=== PATIENT | female | born 1960 | race Caucasian/White ===

== ENCOUNTER 2017-08-06 05:55 | Day surgery (SDC) | payer OTHER ==
[~2017-08-06] VITALS: Ht 163.8 cm; Wt 103.6 kg
[~2017-08-06 05:55] MED LIST: ADVIL200 M2 PO; ATIVAN0.5 M1 PO; BENAZEPRIL-HCT PO; BIOTIN; BONIVA150 MG PO; CALCIUM 1,0001 EAC1 PO; LEXAPRO10 M2 PO; PROTONIX40 M2 PO; SINGULAIR10 M1 PO; VALSARTAN-HCTZ1 EA11 PO; VITAMIN B12; VITAMIN D5000 UNI1 PO; XOPENEX HFA15 G1 INH
[2017-08-06 07:00] LABS: ANION GAP 14 mmol/L (0-20); BLOOD UREA NITROGEN 13 mg/dl (6-24); CALCIUM 9.2 mg/dl (8.5-10.5); CARBON DIOXIDE-VENOUS 26 mmol/L (22-32); CHLORIDE 107 mmol/l (96-110); CREATININE 0.75 mg/dl (0.50-1.10); GLUCOSE 111 mg/dL (70-110); POTASSIUM 3.8 mmol/L (3.7-5.1); SODIUM 143 mmol/L (135-145); eGFR VALUE FOR BLACK >90 mL/Min
== END 2017-08-06 09:08 ==
LOC: ENDOS 05:55 → SHSC 05:55 → ENDOS 08:00
PROVIDERS: Specialist
PROC: 0DBB8ZX Excision of Ileum, Via Natural or Artificial Opening Endoscopic, Diagnostic (ICD-10-PCS; principal; 2017-08-06)
PROC: 0DBE8ZX Excision of Large Intestine, Via Natural or Artificial Opening Endoscopic, Diagnostic (ICD-10-PCS; 2017-08-06)
DX: K57.30 Diverticulosis of large intestine without perforation or abscess without bleeding (principal); I10 Essential (primary) hypertension; E66.01 Morbid (severe) obesity due to excess calories; F41.9 Anxiety disorder, unspecified; F32.9 Major depressive disorder, single episode, unspecified; J45.909 Unspecified asthma, uncomplicated; G47.30 Sleep apnea, unspecified; K21.9 Gastro-esophageal reflux disease without esophagitis; Z79.1 Long term (current) use of non-steroidal anti-inflammatories (NSAID); Z79.899 Other long term (current) drug therapy; Z88.1 Allergy status to other antibiotic agents; Z88.2 Allergy status to sulfonamides; Z88.5 Allergy status to narcotic agent; Z88.8 Allergy status to other drugs, medicaments and biological substances